=== PATIENT | female | born 1995 | race Caucasian/White ===

== ENCOUNTER 2020-03-15 10:54 | Inpatient (IN) | payer MEDICAID ==
[2020-03-15] MEDS ORDERED: Oxytocin 10 Units/1 ML SDV ONE ×2 (12:17→14:08)
[2020-03-15] MEDS ORDERED: cefOXitin 1 GM Vial ONE (12:17)
[2020-03-15] MEDS ORDERED: Sodium Chloride 0.9% 10 ML Syringe FLUSH PRN (12:33)
[2020-03-15] MEDS ORDERED: Ondansetron 4 MG/2 ML SDV IV PRN (12:33)
[2020-03-15] MEDS ORDERED: Acetaminophen 325 MG Tab PO PRN (12:33)
--- NOTE | 2020-03-15 12:43 | PCM.LDHP ---
L&D History of Present Illness - General Date of Service: 03/15/20 Admit Problem/Dx: Patient Status Order with Admit Dx/Problem 03/15/20 12:33 Patient Status [ADT] Routine Admission Diagnosis/Problem Admission Diagnosis/Problem - Related Data Allergies/Adverse Reactions: Allergies Allergy/AdvReac Type Severity Reaction Status Date / Time amoxicillin [From Augmentin] Allergy Hives Verified 03/15/20 12:15 cefuroxime [From Ceftin] Allergy Hives Verified 03/15/20 12:15 clavulanic acid Allergy Hives Verified 03/15/20 12:15 [From Augmentin] penicillin G Allergy Hives Verified 03/15/20 12:15 Home Medications: Home Meds Budesonide [Pulmicort] 0.5 mg IH BID 03/15/20 [History] Budesonide/Formoterol Fumarate [Symbicort 160-4.5 Mcg Inhaler] 6 gm IH BID 03/15/20 [History] Pnv No.95/Ferrous Fum/Folic AC [ Vitamin Tablet] 1 each PO DAILY 03/15/20 [History] Past Medical History HEENT History: Reports: Allergic Rhinitis Respiratory History: Reports: Asthma 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 OB/BYN History: X 2 Musculoskeletal History: Reports: RA - Past Surgical History HEENT Surgical History: Reports: Adenoidectomy, Tonsillectomy Other HEENT Surgeries/Procedures: Ear tubes Respiratory Surgical History: Reports: None Musculoskeletal Surgical History: Reports: None Social & Family History - Tobacco Use Smoking Status *Q: Current Every Day Smoker Years of Tobacco use: 11 Packs/Tins Daily: 0.2 Used Tobacco, but Quit: No Second Hand Smoke Exposure: Yes - Caffeine Use Caffeine Use: Reports: Soda - Recreational Drug Use Recreational Drug Use: No H&P Review of Systems - Review of Systems: Review Of Systems: See Below General: Reports: No Symptoms HEENT: Reports: No Symptoms Pulmonary: Reports: No Symptoms Cardiovascular: Reports: No Symptoms Gastrointestinal: Reports: No Symptoms Genitourinary: Reports: No Symptoms Musculoskeletal: Reports: No Symptoms Skin: Reports: No Symptoms Psychiatric: Reports: No Symptoms Neurological: Reports: No Symptoms Hematologic/Lymphatic: Reports: No Symptoms Immunologic: Reports: No Symptoms L&D Exam - Exam Exam: See Below - Vital Signs Vital Signs: Last Vital Signs Temp 36.6 C 08/01/20 11:00 Pulse 88 03/15/20 11:00 Resp 16 03/15/20 11:00 BP 130/74 03/15/20 11:00 Pulse Ox Weight: 93.894 kg - OB Specific Contraction Intensity: Mild Movement: Active Heart Tones: Present Heart Rate (FHR) Variability: Moderate (6-25 bmp) - Exam General: Alert, Oriented, Cooperative HEENT: PERRLA, Conjunctiva Clear, EACs Clear, EOMI, Hearing Intact, Mucosa Moist & Oolitic, Nares Patent, Normal Nasal Septum, Posterior Pharynx Clear, Pupils Equal, Pupils Reactive, TMs Clear Neck: Supple, Trachea Midline Lungs: Clear to Auscultation, Normal Respiratory Effort Cardiovascular: Regular Rate, Regular Rhythm GI/Abdominal Exam: Normal Bowel Sounds, Soft, Non-Tender, No Organomegaly, No Distention, No Abnormal Bruit, No Mass, Pelvis Stable Rectal Exam: Normal Exam, Normal Rectal Tone Genitourinary: Normal external exam, Normal bimanual exam, Normal speculum exam Back Exam: Normal Inspection, Full Range of Motion Extremities: Normal Inspection, Normal Range of Motion, Non-Tender, No Pedal Edema, Normal Capillary Refill Skin: Warm, Dry, Intact Neurological: Cranial Nerves Intact, Reflexes Equal Bilateral Psychiatric: Alert, Normal Affect, Normal Mood - Patient Data Lab Results Last 24 hrs: Laboratory Results - last 24 hr 03/15/20 03/15/20 03/15/20 Range/Units 11:00 11:01 11:35 WBC (4.5-11.0) K/uL RBC (3.30-5.50) M/uL Hgb (12.0-15.0) g/dL Hct (36.0-48.0) % MCV (80-98) fL MCH (27-31) pg MCHC (32-36) % Plt Count (150-400) K/uL Urine Color Yellow (YELLOW) Urine Appearance Slightly cloudy A (CLEAR) Urine pH 6.5 (5.0-8.0) Ur Specific [place] >= 1.030 (1.008-1.030) Urine Protein 100 H (NEGATIVE) mg/dL Urine Glucose (UA) Negative (NEGATIVE) mg/dL Urine Ketones Negative (NEGATIVE) mg/dL Urine Occult Blood Moderate H (NEGATIVE) Urine Nitrite Negative (NEGATIVE) Urine Bilirubin Negative (NEGATIVE) Urine Urobilinogen 0.2 (0.2-1.0) EU/dL Ur Leukocyte Esterase Small H (NEGATIVE) Urine RBC Not seen (0-5) Urine WBC 5-10 H (0-5) Ur Epithelial Cells Few Amorphous Sediment Few Urine Bacteria Few Membrane Rupture Positive H (NEGATIVE) Urine Opiates Screen Negative (NEGATIVE) Ur Oxycodone Screen Negative (NEGATIVE) Urine Methadone Screen Negative (NEGATIVE) Ur Propoxyphene Screen Negative (NEGATIVE) Ur Barbiturates Screen Negative (NEGATIVE) Ur Tricyclics Screen Negative (NEGATIVE) Ur Phencyclidine Scrn Negative (NEGATIVE) Ur Amphetamine Screen Negative (NEGATIVE) U Methamphetamines Scrn Negative (NEGATIVE) Urine MDMA Screen Negative (NEGATIVE) U Benzodiazepines Scrn Negative (NEGATIVE) U Cocaine Metab Screen Negative (NEGATIVE) U Marijuana (THC) Screen Negative (NEGATIVE) 03/15/20 Range/Units 11:50 WBC 10.3 (4.5-11.0) K/uL RBC 4.10 (3.30-5.50) M/uL Hgb 10.8 L (12.0-15.0) g/dL Hct 34.0 L (36.0-48.0) % MCV 83 (80-98) fL MCH 26 L (27-31) pg MCHC 32 (32-36) % Plt Count 251 (150-400) K/uL Urine Color (YELLOW) Urine Appearance (CLEAR) Urine pH (5.0-8.0) Ur Specific [place] (1.008-1.030) Urine Protein (NEGATIVE) mg/dL Urine Glucose (UA) (NEGATIVE) mg/dL Urine Ketones (NEGATIVE) mg/dL Urine Occult Blood (NEGATIVE) Urine Nitrite (NEGATIVE) Urine Bilirubin (NEGATIVE) Urine Urobilinogen (0.2-1.0) EU/dL Ur Leukocyte Esterase (NEGATIVE) Urine RBC (0-5) Urine WBC (0-5) Ur Epithelial Cells Amorphous Sediment Urine Bacteria Membrane Rupture (NEGATIVE) Urine Opiates Screen (NEGATIVE) Ur Oxycodone Screen (NEGATIVE) Urine Methadone Screen (NEGATIVE) Ur Propoxyphene Screen (NEGATIVE) Ur Barbiturates Screen (NEGATIVE) Ur Tricyclics Screen (NEGATIVE) Ur Phencyclidine Scrn (NEGATIVE) Ur Amphetamine Screen (NEGATIVE) U Methamphetamines Scrn (NEGATIVE) Urine MDMA Screen (NEGATIVE) U Benzodiazepines Scrn (NEGATIVE) U Cocaine Metab Screen (NEGATIVE) U Marijuana (THC) Screen (NEGATIVE) Result Diagrams: 03/15/20 11:50 - Problem List (1) SNOMED Code(s): 72478909 ICD Code: Z34.90 - ENCNTR FOR SUPRVSN OF NORMAL , UNSP, UNSP TRIMES TER Status: Acute Current Visit: Yes Qualifiers: Weeks of gestation: 38 weeks Qualified Code(s): Z3A.38 - 38 weeks gestation of (2) SROM (spontaneous rupture of membranes) SNOMED Code(s): 378380391 ICD Code: RNB0169 - Status: Acute Current Visit: Yes Problem List Initiated/Reviewed/Updated: Yes Orders Last 24hrs: Active Orders 24 hr Category Date Time Status Patient Status [ADT] Routine ADT 03/15/20 12:33 Active Ambulate [RC] PER UNIT ROUTINE Care 03/15/20 12:33 Active Communication Order [RC] ASDIRECTED Care 03/15/20 12:33 Active Heart Tones [RC] PER UNIT ROUTINE Care 03/15/20 12:33 Active Non Stress Test [RC] Click to Edit Care 03/15/20 12:33 Active Notify Provider Vital Signs [RC] PRN Care 03/15/20 12:33 Active Notify Provider [RC] PRN Care 03/15/20 12:33 Active OB Check [OM.PC] Click to Edit Care 03/15/20 11:00 Ordered VTE/DVT Education [RC] Click to Edit Care 03/15/20 12:35 Active Vital Signs [RC] PER UNIT ROUTINE Care 03/15/20 12:33 Active CORONAVIRUS COVID-19 SONYA [MOLEC] Stat Lab 03/15/20 11:47 Received TYPE AND SCREEN [BBK] Routine Lab 03/15/20 11:45 Ordered Acetaminophen [Tylenol] Med 03/15/20 12:33 Ordered 650 mg PO Q4H PRN Ondansetron [Zofran] Med 03/15/20 12:33 Ordered 4 mg IV Q4H PRN Sodium Chloride 0.9% [Saline Flush] Med 03/15/20 12:33 Ordered 10 ml FLUSH ASDIRECTED PRN DVT/VTE Prophylaxis Reflex [OM.PC] Routine Oth 03/15/20 12:33 Ordered Saline Lock Insert [OM.PC] Routine Oth 03/15/20 12:33 Ordered Resuscitation Status Routine Resus Stat 03/15/20 12:33 Ordered Medication Orders Acetaminophen (Tylenol) 650 mg PO Q4H PRN PRN Reason: Pain (Mild 1-3) and fever Ondansetron HCl (Zofran) 4 mg IV Q4H PRN PRN Reason: Nausea/Vomiting Sodium Chloride (Saline Flush) 10 ml FLUSH ASDIRECTED PRN PRN Reason: Keep Vein Open Assessment/Plan Comment:: 03/15/2020 25 yo here at 38 2/7 weeks gestation. She SROM at home at 1055 and came here to [facility]. She normally doctor's in [place] and is a scheduled RCS next Tuesday. Amnisure positive SVE-1/50/-2 FHTs category one Plan- Will notify OR crew and surgeon Continue to monitor FHTs Continue to monitor labor Rapid COV19 test Plan and anticipate a RCS
[2020-03-15] MEDS ORDERED: Sodium Chloride 0.9% 10 ML ONE (12:57)
[2020-03-15] MEDS ORDERED: Meropenem 500 MG SDV ONE (12:57)
[2020-03-15] MEDS ORDERED: ePHEDrine 50 MG/ML SDV ONE (14:08)
[2020-03-15] MEDS ORDERED: HYDROmorphone/Normal Saline 15 MG/30 ML PCA IV PRN (15:02)
[2020-03-15] MEDS ORDERED: hydrOXYzine HCL 100 MG/2 ML SDV IM PRN (15:04)
[2020-03-15] MEDS: Acetaminophen 500 MG Tab PO SCH ×2 (15:39→22:26)
[2020-03-15] MEDS ORDERED: Naloxone 0.4 MG/ML SDV IV PRN (16:00)
[2020-03-15] MEDS: Dextrose 5%-Lactated Ringers 1,000 ML IV SCH ×2 (17:22→23:42)
[2020-03-15] MEDS: Ibuprofen 600 MG Tab PO SCH (17:22)
[2020-03-15] MEDS: Meropenem 500 MG in Sodium Chloride 0.9% 50 ML IV SCH (17:29)
[2020-03-16] MEDS: Ibuprofen 600 MG Tab PO SCH ×4 (00:24→17:31)
[2020-03-16] MEDS: Meropenem 500 MG in Sodium Chloride 0.9% 50 ML IV SCH ×4 (00:25→17:30)
[2020-03-16] MEDS: Acetaminophen 500 MG Tab PO SCH ×4 (04:36→23:13)
[2020-03-16] MEDS: Dextrose 5%-Lactated Ringers 1,000 ML IV SCH (05:57)
[2020-03-16] MEDS ORDERED: Dextrose 5%-Lactated Ringers 1,000 ML IV SCH (07:45)
[2020-03-16] MEDS: Bisacodyl 5 MG Tab PO SCH ×2 (09:26→20:32)
[2020-03-16] MEDS: Docusate Sodium 100 MG Cap PO SCH ×2 (09:26→20:32)
[2020-03-16] MEDS: oxyCODONE 5 MG Tab PO PRN ×3 (09:29→23:13)
[2020-03-17] MEDS: Acetaminophen 500 MG Tab PO SCH ×2 (04:05→11:12)
[2020-03-17] MEDS: Ibuprofen 600 MG Tab PO SCH ×3 (06:12→13:11)
[2020-03-17] MEDS: Meropenem 500 MG in Sodium Chloride 0.9% 50 ML IV SCH ×4 (06:13→13:07)
[2020-03-17] MEDS: Docusate Sodium 100 MG Cap PO SCH (09:04)
[2020-03-17] MEDS: Bisacodyl 5 MG Tab PO SCH (09:04)
--- NOTE | 2020-03-17 09:29 | DISCH ---
ADMISSION DIAGNOSIS: Term , spontaneous rupture of membranes. DISCHARGE DIAGNOSES: section and excision of nodule posterior aspect of uterus. Date of procedure: 03/15/2020. HISTORY: Teresa is at term . She had spontaneous rupture of membranes. She was scheduled to have a in [place] on 03/21/2020, but her membranes ruptured. She presented to [facility]. She had a . No complications. Vital signs remained stable. Pain was controlled, she was up ambulating, had a bowel movement and was able to be discharged to home without any complications on 03/17/2020. PHYSICAL EXAMINATION: GENERAL: Teresa is a 25-year-old female. VITAL SIGNS: Height is 5 feet 1 inch, weight is 207 pounds. TPR at 0404; 97.1, 79, 18. Blood pressure 121/76. HEENT: Negative. NECK: Supple. HEART: Regular rate and rhythm. LUNGS: Clear. ABDOMEN: Incision is glued. Abdominal binder is on. EXTREMITIES: Without peripheral edema. DISPOSITION: Discharged to home. FOLLOWUP: With Venus Hernández PA-C, at [facility] on 03/25/2020, to call for a time. HOME MEDICATION: 1. Motrin 600 mg every 6 hours, #40. 2. Oxycodone 5 mg every 6 hours, #28. 3. Tylenol Extra Strength 1000 mg every 6 hours, #100. She is to resume her home medication of: 1. Pulmicort inhalation b.i.d. 2. Symbicort inhalation 2 puffs b.i.d. 3. vitamins 1 daily. DIET: Regular diet as tolerated. Drink 8 to 10 glasses of water a day. ACTIVITY: No lifting over 10 pounds and baby and car seat for 6 weeks. Driving: Do not drive for 1 week and while on pain medication. Shower/bathing: May shower. No tub bathing or swimming for 8 weeks. DISCHARGE INSTRUCTIONS: Notify provider if any fever, increased pain, swelling, redness, drainage, nausea, or vomiting. Wound incision care, keep site clean and dry. Wear abdominal binder for 6 weeks as tolerated. SPECIAL INSTRUCTION: Use incentive spirometer 10 times every hour while awake for 1 week.
--- NOTE | 2020-03-18 14:43 | OR ---
DATE OF PROCEDURE: 03/15/2020 SURGEON: Jack Prince MD PREOPERATIVE DIAGNOSIS: Term with rupture of membranes and history of previous section. POSTOPERATIVE DIAGNOSES: 1. Term with rupture of membranes and history of previous section. 2. Nodular soft tissue mass in the posterior aspect of the uterus (1 cm). OPERATIVE PROCEDURE: 1. Repeat section (84462). 2. Excision of nodular lesion on the posterior aspect of the uterus (07872). ANESTHESIA: Spinal. CONNIE SCRATCHER: Maryjane Mccray CNM. INDICATION FOR PROCEDURE: This is a 25-year-old female presenting with term . She was scheduled for a scheduled repeat section likely next Tuesday, but presented here with ruptured membranes and plan was to proceed with a section. Potential risks including bleeding, infection, injury to the baby and her mother were all reviewed, and the patient wished to proceed. DETAILS OF PROCEDURE: The patient was taken to the operating room, placed in a supine position after a spinal anesthetic was placed, and a roll was placed underneath the right hip. Cullen catheter was inserted and the abdomen was prepped and draped. The previous Pfannenstiel incision was then reused and carried down through the skin and subcutaneous tissue, and through the anterior rectus sheath, subrectus sheath flaps were then raised superiorly and inferiorly and the midline peritoneum divided. Peritoneal reflection of the bladder on the uterus was then divided and a low transverse uterine incision was made. A viable male was then delivered through a vertex presentation and the cord was clamped and cut. Routine care given off the field. The patient was given IV intrauterine oxytocin and IV cefoxitin. Good uterine contractions were noted and the placenta was delivered without difficulty. The uterus was then closed with 2 layers of 2-0 Vicryl stitch as was the peritoneal reflection of the bladder on the uterus. Upon getting ready to replace the uterus back into the full peritoneal cavity, a roughly 1 cm white fleshy lesion was noted on the posterior aspect of the uterus. This was excised for histologic evaluation. At that point, the midline peritoneum was approximated with #2 Vicryl stitch as was the anterior rectus sheath. Subcutaneous tissue was approximated with some 3-0 Vicryl stitch and the skin with a 4-0 Vicryl subcuticular stitch. Surgical glue was then placed on the incision and the patient taken to the recovery room in satisfactory condition. There were no evident complications. Per ACOG guidelines, Maryjane Mccray assisted in this case and provided important assistance improving the patient's safety and efficiency of the operation. Jack Prince MD /[id number]
--- NOTE | 2020-03-18 15:21 | PN ---
DATE OF SERVICE: 03/16/2020 The patient is postop day 1 from a section along with removal of a small nodule on the posterior aspect of the uterus. Clinically, she is doing well. 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 Begin some bowel stimulation and go up to a regular diet. Cullen catheter will be coming out. Jack Prince MD /[id number]
== END 2020-03-17 16:45 | disposition home or self-care (01) | DRG 788 ==
LOC: JP.OBCHECK 10:54 → JP.OB 12:13 → JP.MS 18:36
PROVIDERS: ADMIT Surgery; ATTEND Surgery
PROC: 10D00Z1 Extraction of Products of Conception, Low, Open Approach (ICD-10-PCS; principal; 2020-03-15)
DX: O34.211 Maternal care for low transverse scar from previous cesarean delivery (principal); Z3A.38 38 weeks gestation of pregnancy; Z37.0 Single live birth; Z11.59 Encounter for screening for other viral diseases; Z88.1 Allergy status to other antibiotic agents; Z88.0 Allergy status to penicillin; O99.334 Smoking (tobacco) complicating childbirth; F17.210 Nicotine dependence, cigarettes, uncomplicated
CPT/HCPCS: 36415; 36430; 59409; 80305-QW; 81001; 84112; 85027; 85460; 86850; 86900; 86901; 88305; 88307; 94762; 99211; A9270-GY; J0694; J1170; J2185; J2405; J2590; J2790; J7050; J7121; U0002

== ENCOUNTER 2020-05-12 22:51 | Emergency (ER) | payer MEDICAID ==
--- NOTE | 2020-05-12 23:41 | EDM.PDOC ---
ED HPI GENERAL MEDICAL PROBLEM - General Chief Complaint: Asthma Stated Complaint: BREATHING TROUBLE Time Seen by Provider: 05/12/20 22:56 Source of Information: Reports: Patient, Family, RN Notes Reviewed History Limitations: Reports: No Limitations - History of Present Illness INITIAL COMMENTS - FREE TEXT/NARRATIVE: 25-year-old female presents emergency department a complaint of shortness of breath, she has a known history of asthma does use combination albuterol Pulmicort, she states over the last 24 hours things have gotten worse with her breathing. She is also had some sinus troubles for the last 3 or 4 days mainly with sinus congestion no fevers. Also is a tobacco user Throat Pain Score (Numeric/FACES): 3 - Related Data Allergies Allergy/AdvReac Type Severity Reaction Status Date / Time amoxicillin [From Augmentin] Allergy Hives Verified 05/12/20 23:16 cefuroxime [From Ceftin] Allergy Hives Verified 05/12/20 23:16 clavulanic acid Allergy Hives Verified 05/12/20 23:16 [From Augmentin] penicillin G Allergy Hives Verified 05/12/20 23:16 Home Meds: Home Meds Budesonide [Pulmicort] 0.5 mg IH BID 03/15/20 [History] Budesonide/Formoterol Fumarate [Symbicort 160-4.5 Mcg Inhaler] 6 gm IH BID 03/15/20 [History] Acetaminophen [Tylenol Extra Strength] 1,000 mg PO Q6H PRN 05/12/20 [History] Albuterol/Ipratropium [DuoNeb 3.0-0.5 MG/3 ML] 1 dose INH Q4H PRN 05/12/20 [History] Cetirizine [ZyrTEC] 10 mg PO DAILY 05/12/20 [History] Past Medical History HEENT History: Reports: Allergic Rhinitis Respiratory History: Reports: Asthma 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 Musculoskeletal History: Reports: RA - Infectious Disease History Infectious Disease History: Reports: Chicken Pox - Past Surgical History HEENT Surgical History: Reports: Adenoidectomy, Tonsillectomy Other HEENT Surgeries/Procedures: Ear tubes Respiratory Surgical History: Reports: None Musculoskeletal Surgical History: Reports: None Social & Family History - Tobacco Use Smoking Status *Q: Current Some Day Smoker Years of Tobacco use: 11 Packs/Tins Daily: 0.5 Used Tobacco, but Quit: Yes Month/Year Tobacco Last Used: 4 days ago Second Hand Smoke Exposure: Yes - Caffeine Use Caffeine Use: Reports: Soda - Alcohol Use Days Per Week of Alcohol Use: 0 - Recreational Drug Use Recreational Drug Use: No ED ROS GENERAL - Review of Systems Review Of Systems: See Below Constitutional: Denies: Fever, Chills HEENT: Reports: No Symptoms Respiratory: Reports: Shortness of Breath, Wheezing, Cough. Denies: Sputum Cardiovascular: Reports: Dyspnea on Exertion GI/Abdominal: Reports: No Symptoms ED EXAM, GENERAL - Physical Exam Exam: See Below Exam Limited By: No Limitations General Appearance: Alert, WD/WN, No Apparent Distress Respiratory/Chest: No Respiratory Distress, Decreased Breath Sounds, Wheezing Cardiovascular: Regular Rate, Rhythm, No Murmur Course - Vital Signs Last Recorded V/S: Last Vital Signs Temp 96.8 F L 05/12/20 23:27 Pulse 102 H 05/12/20 23:27 Resp 16 05/12/20 23:27 BP 132/80 05/12/20 23:27 Pulse Ox 96 05/12/20 23:27 Departure - Departure Time of Disposition: 23:40 Disposition: Home, Self-Care 01 Condition: Fair Clinical Impression: Moderate persistent asthma not dependent on systemic steroids with acute exacerbation - Discharge Information Instructions: Asthma, Adult Referrals: PCP,None [Primary Care Provider] - Additional Instructions: tale full course of Prednisone, please followup with your primary care provider in 5-7 days if not better, please call return to the emergency department with worsening of symptoms. Sepsis Event Note (ED) - Evaluation Sepsis Screening Result: No Definite Risk - Focused Exam Vital Signs: Vital Signs Temp Pulse Resp BP Pulse Ox 05/12/20 23:27 96.8 F L 102 H 16 132/80 96 05/12/20 23:06 96.8 F L 102 H 18 132/80 96 - Assessment/Plan Plan: Assessment Acuity = acute Site and laterality = moderate persistent asthma Etiology = unknown Manifestations = wheezing Location of injury = Home Lab values = none Plan elected to treat empirically prednisone 20 mg po daily for 5 days This note was dictated using [employer] voice recognition software please call with any questions on syntax or grammar.
== END 2020-05-12 23:48 | disposition home or self-care (01) ==
LOC: JP.ED 22:51
DX: J45.40 Moderate persistent asthma, uncomplicated (principal); F17.210 Nicotine dependence, cigarettes, uncomplicated; Z98.890 Other specified postprocedural states; Z88.1 Allergy status to other antibiotic agents; Z88.8 Allergy status to other drugs, medicaments and biological substances; Z88.0 Allergy status to penicillin; Z79.899 Other long term (current) drug therapy
CPT/HCPCS: 99283

== ENCOUNTER 2020-10-11 13:29 | Emergency (ER) | payer MEDICAID ==
[2020-10-11] MEDS ORDERED: Albuterol/Ipratropium 3.0-0.5 MG/3 ML Neb Soln NEB PRN (13:42)
[2020-10-11] MEDS ORDERED: methylPREDNISolone Sodium Succinate 125 MG/2 ML SDV IM ONE (13:43)
--- NOTE | 2020-10-11 13:46 | EDM.PDOC ---
ED HPI GENERAL MEDICAL PROBLEM - General Chief Complaint: Respiratory Problem Stated Complaint: ASTHMA FLARE-UP Time Seen by Provider: 10/11/20 13:40 Source of Information: Reports: Patient, Family, RN Notes Reviewed History Limitations: Reports: Respiratory Distress - History of Present Illness INITIAL COMMENTS - FREE TEXT/NARRATIVE: 25-year-old female presents emergency department today complaint shortness of breath, she has known history of moderate persistent asthma states she last used her rescue inhaler about an hour ago she has been having difficulty with cough shortness of breath that has progressively gotten worse. She denies any recent illness or anything states she has been doing fine was doing fine yesterday. - Related Data Allergies Allergy/AdvReac Type Severity Reaction Status Date / Time amoxicillin [From Augmentin] Allergy Hives Verified 10/11/20 13:42 cefuroxime [From Ceftin] Allergy Hives Verified 10/11/20 13:42 clavulanic acid Allergy Hives Verified 10/11/20 13:42 [From Augmentin] penicillin G Allergy Hives Verified 10/11/20 13:42 Home Meds: Home Meds Budesonide [Pulmicort] 0.5 mg IH BID 03/15/20 [History] Budesonide/Formoterol Fumarate [Symbicort 160-4.5 Mcg Inhaler] 6 gm IH BID 03/15/20 [History] Acetaminophen [Tylenol Extra Strength] 1,000 mg PO Q6H PRN 05/12/20 [History] Albuterol/Ipratropium [DuoNeb 3.0-0.5 MG/3 ML] 1 dose INH Q4H PRN 05/12/20 [History] Cetirizine [ZyrTEC] 10 mg PO DAILY 05/12/20 [History] Albuterol Sulfate [Proair Hfa] 8.5 gm IH ASDIRECTED 10/11/20 [History] Albuterol/Ipratropium [DuoNeb 3.0-0.5 MG/3 ML] 3 ml NEB Q4H PRN #90 neb 10/11/20 [Rx] predniSONE [Prednisone] 20 mg PO DAILY #5 tablet 10/11/20 [Rx] Past Medical History HEENT History: Reports: Allergic Rhinitis Respiratory History: Reports: Asthma 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 Musculoskeletal History: Reports: RA - Infectious Disease History Infectious Disease History: Reports: Chicken Pox - Past Surgical History HEENT Surgical History: Reports: Adenoidectomy, Tonsillectomy Other HEENT Surgeries/Procedures: Ear tubes Respiratory Surgical History: Reports: None Musculoskeletal Surgical History: Reports: None Social & Family History - Caffeine Use Caffeine Use: Reports: Soda ED ROS GENERAL - Review of Systems Review Of Systems: See Below Constitutional: Denies: Fever, Chills HEENT: Reports: No Symptoms Respiratory: Reports: Shortness of Breath, Wheezing, Cough Cardiovascular: Reports: Dyspnea on Exertion GI/Abdominal: Reports: No Symptoms ED EXAM, GENERAL - Physical Exam Exam: See Below Exam Limited By: Respiratory Distress General Appearance: Alert, Mild Distress Respiratory/Chest: Respiratory Distress, Decreased Breath Sounds, Wheezing, Accessory Muscle Use Cardiovascular: Tachycardia Course - Vital Signs Last Recorded V/S: Last Vital Signs Temp 97.3 F 10/11/20 13:38 Pulse 120 H 10/11/20 13:38 Resp 22 H 10/11/20 13:38 BP 123/82 10/11/20 13:38 Pulse Ox 95 10/11/20 13:38 - Orders/Labs/Meds Orders: Active Orders 24 hr Category Date Time Status RT Aerosol Therapy [RC] ASDIRECTED Care 10/11/20 13:43 Active Albuterol/Ipratropium [DuoNeb 3.0-0.5 MG/3 ML] Med 10/11/20 13:42 Active 3 ml NEB Q1H PRN Medication Orders Albuterol/Ipratropium (Duoneb 3.0-0.5 Mg/3 Ml) 3 ml NEB Q1H PRN PRN Reason: Shortness of Breath Last Admin: 10/11/20 13:48 Dose: 3 ml Documented by: YAYA Meds: Medications Generic Name Dose Route Start Last Admin Trade Name Freq PRN Reason Stop Dose Admin Albuterol/Ipratropium 3 ml 10/11/20 13:42 10/11/20 13:48 Duoneb 3.0-0.5 Mg/3 Ml NEB 3 ml Q1H PRN Administration Shortness of Breath Discontinued Medications Generic Name Dose Route Start Last Admin Trade Name Freq PRN Reason Stop Dose Admin Methylprednisolone Sodium Succinate 125 mg 10/11/20 13:43 10/11/20 13:49 Solu-Medrol IM 10/11/20 13:44 125 mg ONETIME ONE Administration Departure - Departure Time of Disposition: 14:29 Disposition: Home, Self-Care 01 Condition: Fair Clinical Impression: Exacerbation of asthma Qualifiers: Asthma severity: mild Asthma persistence: persistent Qualified Code(s): J45.31 - Mild persistent asthma with (acute) exacerbation - Discharge Information Prescriptions: Albuterol/Ipratropium [DuoNeb 3.0-0.5 MG/3 ML] 3 ml NEB Q4H PRN #90 neb PRN Reason: Wheezing predniSONE [Prednisone] 20 mg PO DAILY #5 tablet Referrals: Lesley Quick MD [Primary Care Provider] - Forms: ED Department Discharge Additional Instructions: Your medications have been faxed to [facility] pharmacy, continue with your regular medications take the prednisone for the next 5 days start tomorrow, please followup with your primary care provider in 3-5 days if not better, please call return to the emergency department with worsening of symptoms. Sepsis Event Note (ED) - Evaluation Sepsis Screening Result: No Definite Risk - Focused Exam Vital Signs: Vital Signs Temp Pulse Resp BP Pulse Ox 10/11/20 13:38 97.3 F 120 H 22 H 123/82 95 - My Orders Last 24 Hours: My Active Orders 10/11/20 13:42 Albuterol/Ipratropium [DuoNeb 3.0-0.5 MG/3 ML] 3 ml NEB Q1H PRN 10/11/20 13:43 RT Aerosol Therapy [RC] ASDIRECTED - Assessment/Plan Last 24 Hours: My Active Orders 10/11/20 13:42 Albuterol/Ipratropium [DuoNeb 3.0-0.5 MG/3 ML] 3 ml NEB Q1H PRN 10/11/20 13:43 RT Aerosol Therapy [RC] ASDIRECTED Plan: Assessment Acuity = acute Site and laterality = asthma exacerbation Etiology = unknown trigger Manifestations = none Location of injury = Home Lab values = none Plan Good improvement with combination DuoNeb and Solu-Medrol 125 mg reexamination shows good improvement with air movement wheezing has really reduced however she still has an expiratory phase wheeze. Plan for treatment with prednisone 20 mg once a day for 5 days start tomorrow and then prescription for duo nebs 90 vials also provided medications faxed to [facility] follow-up primary care 3 to 5 days if not better This note was dictated using [employer] by [employer] voice recognition software please call with any questions on syntax or grammar.
== END 2020-10-11 14:40 | disposition home or self-care (01) ==
LOC: JP.ED 13:29
DX: J45.31 Mild persistent asthma with (acute) exacerbation (principal); R00.0 Tachycardia, unspecified; Z88.0 Allergy status to penicillin; Z88.1 Allergy status to other antibiotic agents; Z79.899 Other long term (current) drug therapy
CPT/HCPCS: 94640; 96372; 99284; J2930; 99283; J7620-GY

== ENCOUNTER 2021-01-27 23:06 | Emergency (ER) | payer MEDICAID ==
[2021-01-28] MEDS ORDERED: Albuterol/Ipratropium 3.0-0.5 MG/3 ML Neb Soln NEB ONE (00:57)
--- NOTE | 2021-01-28 01:07 | EDM.PDOC ---
ED HPI GENERAL MEDICAL PROBLEM - General Chief Complaint: Chest Pain Stated Complaint: CHEST PAIN Time Seen by Provider: 01/28/21 00:42 Source of Information: Reports: Patient History Limitations: Reports: No Limitations - History of Present Illness INITIAL COMMENTS - FREE TEXT/NARRATIVE: chief complaint: chest pain and tightness This is a 26 year old female presents to the ER for evaluation of symptoms. She reports was cooking supper when she developed a sudden onset of chest tightness "felt like a bear hug" felt short of breath. Finished cooking and fed her family. She tried Tums thinking it was heart burn, Inhaler helped, and Tylenol. The chest tightness persisted and came to ER. 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 no exposure to Covid and all family members are well. Onset: Sudden Duration: Hour(s):, Waxing/Waning Location: Reports: Generalized Quality: Reports: Pressure Improves with: Reports: Medication Worsens with: Reports: None Associated Symptoms: Reports: Chest Pain, Shortness of Breath Treatments BLOCK SEALER: Reports: Breathing Treatments (inhaler), Other (see below) (Tums and Tylenol) Middle Mid-Sternal Chest Pain Score (Numeric/FACES): 2 - Related Data Allergies Allergy/AdvReac Type Severity Reaction Status Date / Time amoxicillin [From Augmentin] Allergy Hives Verified 01/28/21 00:12 cefuroxime [From Ceftin] Allergy Hives Verified 01/28/21 00:12 clavulanic acid Allergy Hives Verified 01/28/21 00:12 [From Augmentin] penicillin G Allergy Hives Verified 01/28/21 00:12 Home Meds: Home Meds Budesonide [Pulmicort] 0.5 mg IH BID 03/15/20 [History] Budesonide/Formoterol Fumarate [Symbicort 160-4.5 Mcg Inhaler] 6 gm IH BID 03/15/20 [History] Acetaminophen [Tylenol Extra Strength] 1,000 mg PO Q6H PRN 05/12/20 [History] Albuterol/Ipratropium [DuoNeb 3.0-0.5 MG/3 ML] 1 dose INH Q4H PRN 05/12/20 [History] Cetirizine [ZyrTEC] 10 mg PO DAILY 05/12/20 [History] Albuterol Sulfate [Proair Hfa] 8.5 gm IH ASDIRECTED 10/11/20 [History] Albuterol/Ipratropium [DuoNeb 3.0-0.5 MG/3 ML] 3 ml NEB Q4H PRN #90 neb 10/11/20 [Rx] predniSONE [Prednisone] 20 mg PO DAILY #5 tablet 10/11/20 [Rx] Past Medical History HEENT History: Reports: Allergic Rhinitis Respiratory History: Reports: Asthma 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 Musculoskeletal History: Reports: RA - Infectious Disease History Infectious Disease History: Reports: Chicken Pox - Past Surgical History HEENT Surgical History: Reports: Adenoidectomy, Tonsillectomy Other HEENT Surgeries/Procedures: Ear tubes Respiratory Surgical History: Reports: None Musculoskeletal Surgical History: Reports: None Social & Family History - Tobacco Use Tobacco Use Status *Q: Current Every Day Tobacco User Years of Tobacco use: 10 Packs/Tins Daily: 0.5 - Caffeine Use Caffeine Use: Reports: Soda - Recreational Drug Use Recreational Drug Use: Yes Drug Use in Last 12 Months: Yes Recreational Drug Type: Reports: Marijuana/Hashish Recreational Drug Use Frequency: Not Used In Over 2 Months - Living Situation & Occupation Living situation: Reports: with Significant Other, with Family Occupation: Employed (lives with SO and 3 children in [place], [place]. 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.) ED ROS GENERAL - Review of Systems Review Of Systems: See Below Constitutional: Reports: Other (chest tightness with shortness of breath) HEENT: Reports: No Symptoms Respiratory: Reports: Shortness of Breath, Pleuritic Chest Pain Cardiovascular: Reports: No Symptoms, Palpitations GI/Abdominal: Reports: No Symptoms : Reports: No Symptoms Musculoskeletal: Reports: Shoulder Pain, Back Pain Skin: Reports: No Symptoms Neurological: Reports: No Symptoms Psychiatric: Reports: No Symptoms Hematologic/Lymphatic: Reports: No Symptoms Immunologic: Reports: No Symptoms ED EXAM, GENERAL - Physical Exam Exam: See Below Exam Limited By: No Limitations General Appearance: Alert, WD/WN, No Apparent Distress, Other (neat and well groomed, pleasant, polite young Lady, no acute distress) Eye Exam: Bilateral Eye: Normal Inspection, PERRL Ears: Normal External Exam, Normal Canal, Hearing Grossly Normal, Normal TMs Ear Exam: Bilateral Ear: Auricle Normal, Canal Normal, TM normal Nose: Normal Inspection, Normal Mucosa, No Blood Throat/Mouth: Normal Inspection, Normal Lips, Normal Teeth, Normal Gums, Normal Oropharynx, Normal Voice, No Airway Compromise Head: Atraumatic, Normocephalic Neck: Normal Inspection, Supple, Non-Tender, Full Range of Motion Respiratory/Chest: No Respiratory Distress, No Accessory Muscle Use, Decreased Breath Sounds, Other (midsternal back and upper chest wall pain) Cardiovascular: Regular Rate, Rhythm, No Murmur, Other (EKG normal sinus rhym) Peripheral Pulses: 2+: Radial (L), Radial (R) GI/Abdominal: Normal Bowel Sounds, Soft, Non-Tender, No Organomegaly, No Distention, No Abnormal Bruit, No Mass (Female) Exam: Deferred Rectal (Female) Exam: Deferred Back Exam: Normal Inspection, Full Range of Motion Extremities: Normal Inspection, Normal Range of Motion, Non-Tender, Normal Capillary Refill, No Pedal Edema Neurological: Alert, Oriented, CN II-XII Intact, Normal Cognition, Normal Gait, Normal Reflexes, No Motor/Sensory Deficits Psychiatric: Normal Affect, Normal Mood Skin Exam: Warm, Dry, Intact, Normal Color, No Rash Lymphatic: No Adenopathy Course - Vital Signs Last Recorded V/S: Last Vital Signs Temp 98.9 F 01/28/21 00:15 Pulse 84 01/28/21 00:15 Resp 14 01/28/21 00:15 BP 138/89 01/28/21 00:15 Pulse Ox 97 01/28/21 00:15 - Orders/Labs/Meds Orders: Active Orders 24 hr Category Date Time Status EKG Documentation Completion [RC] ASDIRECTED Care 01/28/21 01:23 Active RT Aerosol Therapy [RC] ASDIRECTED Care 01/28/21 00:57 Active Chest 2V [CR] Stat Exams 01/28/21 00:56 Taken EKG 12 Lead [EK] Urgent Ther 01/28/21 01:23 Ordered Meds: Medications Discontinued Medications Generic Name Dose Route Start Last Admin Trade Name Freq PRN Reason Stop Dose Admin Albuterol/Ipratropium 3 ml 01/28/21 00:57 01/28/21 01:29 Albuterol/Ipratropium 3.0-0.5 Mg/3 Ml Neb Sky NEB 01/28/21 00:58 3 ml ONETIME ONE Administration - Re-Assessments/Exams Free Text/Narrative Re-Assessment/Exam: 01/28/21 01:13 discussed with Ms. Earl EKG is normal, will do chest xray to rule out pneumonia vs bronchitis vs asthma flare up. she is feeling better now that she is at the ER. -miri blue now -chest xray agrees with plan of care. 01/28/21 02:00 -shortness of breath and chest tightness improved with nebulizer -chest xray right sided streaking discussed with Ms. Earl will treat for asthma flare with bronchitis -meds Zithromax, Robitussin AC and Prednisone -agree with plan of care. Departure - Departure Time of Disposition: 01:55 Disposition: Home, Self-Care 01 Condition: Good Clinical Impression: Bronchitis Exacerbation of asthma Qualifiers: Asthma severity: mild Asthma persistence: persistent Qualified Code(s): J45.31 - Mild persistent asthma with (acute) exacerbation - Discharge Information *PRESCRIPTION DRUG MONITORING PROGRAM REVIEWED*: Not Applicable *COPY OF PRESCRIPTION DRUG MONITORING REPORT IN PATIENT FRANK: Not Applicable Instructions: Acute Bronchitis, Adult, [id number], Asthma, Adult, [id number] Referrals: Lesley uQick MD [Primary Care Provider] - Forms: ED Department Discharge Care Plan Goals: Asthma with bronchitis -Zithromax 500 mg today then 250 mg daily for 4 days -Robitussin AC 10 ml every 4 to 6 hours as needed for painful chest/cough -Prednisone 20 mg daily x 5 days -recheck in Primary Care in 3 to 5 days Return to ER if not improved or symptoms worsen Sepsis Event Note (ED) - Evaluation Sepsis Screening Result: No Definite Risk - Focused Exam Vital Signs: Vital Signs Temp Pulse Resp BP Pulse Ox 01/28/21 00:15 98.9 F 84 14 138/89 97 01/27/21 23:19 98.9 F 84 14 138/89 97 - Problem List & Annotations (1) Exacerbation of asthma SNOMED Code(s): 903969866 Code(s): J45.901 - UNSPECIFIED ASTHMA WITH (ACUTE) EXACERBATION Status: Acute Priority: High Current Visit: Yes Qualifiers: Asthma severity: mild Asthma persistence: persistent Qualified Code(s): J45.31 - Mild persistent asthma with (acute) exacerbation (2) Bronchitis SNOMED Code(s): 57342884 Code(s): J40 - BRONCHITIS, NOT SPECIFIED ACUTE OR CHRONIC Status: Acute Priority: High Current Visit: Yes - Problem List Review Problem List Initiated/Reviewed/Updated: Yes - My Orders Last 24 Hours: My Active Orders 01/28/21 00:56 Chest 2V [CR] Stat 01/28/21 00:57 RT Aerosol Therapy [RC] ASDIRECTED 01/28/21 01:23 EKG Documentation Completion [RC] ASDIRECTED EKG 12 Lead [EK] Urgent - Assessment/Plan Last 24 Hours: My Active Orders 01/28/21 00:56 Chest 2V [CR] Stat 01/28/21 00:57 RT Aerosol Therapy [RC] ASDIRECTED 01/28/21 01:23 EKG Documentation Completion [RC] ASDIRECTED EKG 12 Lead [EK] Urgent Plan: Asthma with bronchitis -Zithromax 500 mg today then 250 mg daily for 4 days -Robitussin AC 10 ml every 4 to 6 hours as needed for painful chest/cough -Prednisone 20 mg daily x 5 days -continue inhalers as directed -recheck in Primary Care in 3 to 5 days Return to ER if not improved or symptoms worsen
--- NOTE | 2021-01-29 10:02 | CR ---
CHEST: 2 view CLINICAL HISTORY:Chest pain, SOB COMPARISON:None FINDINGS: The heart size, pulmonary vascularity and hilar structures are normal. No infiltrate effusion or pneumothorax is seen. IMPRESSION: No acute cardiopulmonary process.
== END 2021-01-28 01:59 | disposition home or self-care (01) ==
LOC: JP.ED 23:06
DX: J45.31 Mild persistent asthma with (acute) exacerbation (principal); Z88.0 Allergy status to penicillin; Z79.899 Other long term (current) drug therapy; Z72.0 Tobacco use
CPT/HCPCS: 71046; 71046-26; 93005; 94640; 99285-25; J7620-GY

== ENCOUNTER 2021-05-02 13:10 | Emergency (ER) | payer MEDICAID ==
--- NOTE | 2021-05-02 14:44 | EDM.PDOC ---
ED HPI GENERAL MEDICAL PROBLEM - General Chief Complaint: Respiratory Problem Stated Complaint: COUGH Time Seen by Provider: 05/02/21 14:20 Source of Information: Reports: RN History Limitations: Reports: No Limitations - History of Present Illness INITIAL COMMENTS - FREE TEXT/NARRATIVE: Patient was a smoker started with symptoms last night including cough, shortness of breath, overall achy body, generalized symptoms. No known sick contacts. It is noted that she has 2 children both with similar symptoms. Nothing seems to make it better. She feels worse today than she did last night. Onset: Today, Sudden Duration: Getting Worse Location: Reports: Generalized Quality: Reports: Ache Severity: Moderate Improves with: Reports: None Worsens with: Reports: Movement Context: Reports: Sick Contact Associated Symptoms: Reports: Cough, Shortness of Breath, Weakness - Related Data Allergies Allergy/AdvReac Type Severity Reaction Status Date / Time amoxicillin [From Augmentin] Allergy Hives Verified 01/28/21 00:12 cefuroxime [From Ceftin] Allergy Hives Verified 01/28/21 00:12 clavulanic acid Allergy Hives Verified 01/28/21 00:12 [From Augmentin] penicillin G Allergy Hives Verified 01/28/21 00:12 Home Meds: Home Meds Budesonide [Pulmicort] 0.5 mg IH BID 03/15/20 [History] Budesonide/Formoterol Fumarate [Symbicort 160-4.5 Mcg Inhaler] 6 gm IH BID 03/15/20 [History] Albuterol/Ipratropium [DuoNeb 3.0-0.5 MG/3 ML] 1 dose INH Q4H PRN 05/12/20 [History] Cetirizine [ZyrTEC] 10 mg PO DAILY 05/12/20 [History] Albuterol Sulfate [Proair Hfa] 8.5 gm IH ASDIRECTED 10/11/20 [History] Albuterol/Ipratropium [DuoNeb 3.0-0.5 MG/3 ML] 3 ml NEB Q4H PRN #90 neb 10/11/20 [Rx] Past Medical History HEENT History: Reports: Allergic Rhinitis Respiratory History: Reports: Asthma 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 Musculoskeletal History: Reports: RA - Infectious Disease History Infectious Disease History: Reports: Chicken Pox - Past Surgical History HEENT Surgical History: Reports: Adenoidectomy, Tonsillectomy Other HEENT Surgeries/Procedures: Ear tubes Respiratory Surgical History: Reports: None Musculoskeletal Surgical History: Reports: None Social & Family History - Tobacco Use Tobacco Use Status *Q: Current Every Day Tobacco User Years of Tobacco use: 8 Packs/Tins Daily: 0.2 - Caffeine Use Caffeine Use: Reports: Soda - Living Situation & Occupation Living situation: Reports: with Significant Other, with Family Occupation: Employed (lives with SO and 3 children in [place], [place]. 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.) ED ROS GENERAL - Review of Systems Review Of Systems: See Below Constitutional: Reports: Weakness, Fatigue Respiratory: Reports: Shortness of Breath Cardiovascular: Reports: No Symptoms Endocrine: Reports: No Symptoms GI/Abdominal: Reports: Other (Loss of appetite) Musculoskeletal: Reports: Muscle Stiffness Skin: Reports: No Symptoms Neurological: Reports: No Symptoms Psychiatric: Reports: No Symptoms Hematologic/Lymphatic: Reports: No Symptoms Immunologic: Reports: No Symptoms ED EXAM, GENERAL - Physical Exam Exam: See Below Exam Limited By: No Limitations General Appearance: Alert, No Apparent Distress Ears: Normal External Exam Nose: Normal Inspection Throat/Mouth: Normal Inspection Neck: Normal Inspection, Supple Respiratory/Chest: No Respiratory Distress, Lungs Clear, Normal Breath Sounds Cardiovascular: Normal Peripheral Pulses, Regular Rate, Rhythm, No Edema GI/Abdominal: Normal Bowel Sounds Extremities: Normal Inspection, Normal Range of Motion Neurological: Alert, Oriented, CN II-XII Intact, Normal Cognition Psychiatric: Normal Affect Skin Exam: Warm, Dry, Intact Lymphatic: No Adenopathy Course - Vital Signs Last Recorded V/S: Last Vital Signs Temp 36.1 C 05/02/21 14:06 Pulse 99 05/02/21 14:06 Resp 14 05/02/21 14:06 BP 120/77 05/02/21 14:06 Pulse Ox 98 05/02/21 14:06 - Orders/Labs/Meds Orders: Active Orders 24 hr Category Date Time Status Isolation [COMM] Routine Oth 05/02/21 14:35 Ordered Labs: Laboratory Tests 05/02/21 Range/Units 15:07 SARS-CoV-2 RNA ([facility]) Negative (NEGATIVE) Covid and flu test results are negative - Re-Assessments/Exams Free Text/Narrative Re-Assessment/Exam: 05/02/21 16:20 Inform patient both flu and Covid tests are negative. Instructed good handwashing, remain at home and out of community contact until symptoms improve to prevent further spread of viral illness. Return to clinic or ER if symptoms fail to improve or worsen and are not manageable at home. Departure - Departure Time of Disposition: 16:33 Disposition: Home, Self-Care 01 Condition: Fair Clinical Impression: Viral illness - Discharge Information Instructions: Viral Illness, Adult Referrals: PCP,None [Primary Care Provider] - Forms: ED Department Discharge Additional Instructions: Symptomatic care instructed. Increase fluid intake, good hand hygiene, avoid community spread by staying home until symptoms have improved. Patient to return to clinic or ER if symptoms fail to improve or worsen and not able to be managed at home. Sepsis Event Note (ED) - Evaluation Sepsis Screening Result: No Definite Risk - My Orders Last 24 Hours: My Active Orders 05/02/21 14:35 Isolation [COMM] Routine - Assessment/Plan Last 24 Hours: My Active Orders 05/02/21 14:35 Isolation [COMM] Routine Assessment:: Viral illness Plan: Home to self-care, symptomatic treatment. Avoid community contact until symptoms improved. Good hand hygiene. Follow-up with primary care and/or return to ER if symptoms fail to improve or worsen and symptoms are not manageable at home
== END 2021-05-02 16:33 | disposition home or self-care (01) ==
LOC: JP.ED 13:10
DX: B34.9 Viral infection, unspecified (principal); J45.909 Unspecified asthma, uncomplicated; F17.200 Nicotine dependence, unspecified, uncomplicated; Z20.822 Contact with and (suspected) exposure to COVID-19; Z88.1 Allergy status to other antibiotic agents; Z88.0 Allergy status to penicillin
CPT/HCPCS: 87804; 87804-59; 99283; U0002

== ENCOUNTER 2021-09-04 14:40 | Emergency (ER) | payer MEDICAID | END 2021-09-04 18:17 | disposition home or self-care (01) | LOC: JP.ED 14:40 | DX: U07.1 COVID-19 (principal); J32.9 Chronic sinusitis, unspecified; H66.92 Otitis media, unspecified, left ear; Z88.0 Allergy status to penicillin; Z72.0 Tobacco use | CPT/HCPCS: 99283; U0002 ==

== ENCOUNTER 2022-01-21 12:52 | Emergency (ER) | payer MEDICAID | END 2022-01-21 14:22 | disposition home or self-care (01) | LOC: JP.ED 12:52 | DX: O20.0 Threatened abortion (principal); J45.909 Unspecified asthma, uncomplicated; F17.210 Nicotine dependence, cigarettes, uncomplicated; Z79.899 Other long term (current) drug therapy; Z88.0 Allergy status to penicillin; Z88.1 Allergy status to other antibiotic agents | CPT/HCPCS: 36415; 84702; 85025; 99282; 99284 ==

== ENCOUNTER 2022-02-22 17:30 | Emergency (ER) | payer MEDICAID | END 2022-02-22 19:14 | disposition home or self-care (01) | LOC: JP.ED 17:30 | DX: O99.891 Other specified diseases and conditions complicating pregnancy (principal); R10.31 Right lower quadrant pain; R10.32 Left lower quadrant pain; F17.210 Nicotine dependence, cigarettes, uncomplicated; Z88.0 Allergy status to penicillin; Z88.1 Allergy status to other antibiotic agents; Z3A.08 8 weeks gestation of pregnancy | CPT/HCPCS: 36415; 81001; 85025; 99284 ==